=== PATIENT | female | born 1970 | race Caucasian/White ===

== ENCOUNTER → 2019-02-11 12:45 | Outpatient (CLI) | payer OTHER, SELFPAY ==
[2019-02-11 13:59] LABS: Iron 77 ug/dL (37-170)
[2019-02-11 14:08] LABS: Transferrin 361 mg/dL (206-381)
[2019-02-11 14:32] LABS: TSH w/ Reflex to FT4 1.19 uIU/mL (0.47-4.68)
[2019-02-11 14:35] LABS: Ferritin 8.1 ng/mL (11.1-264)
[2019-02-11 14:50] LABS: Vitamin B12 652 pg/mL (239-931)
[2019-02-13 16:36] LABS: HEMOLYSIS 18 (0-50); Percent Iron Saturation 17 % (15-50); Total Iron Binding Capacity 455 ug/dL (265-497)
== END ==
PROVIDERS: PCP Family Medicine; Visit Provider Family Medicine
DX: R53.83 Other fatigue (principal); D64.9 Anemia, unspecified; N92.6 Irregular menstruation, unspecified
CPT/HCPCS: 36415; 82607; 82728; 83001; 83002; 83540; 83550; 84443